=== PATIENT | female | born 1975 | race Two or more races ===

== ENCOUNTER 2022-03-08 09:19 | Emergency (ER) | payer SELFPAY ==
[~2022-03-08] VITALS: Ht 157.5 cm; Wt 83.9 kg
--- NOTE | 2022-03-08 09:30 | NUR ---
DR DYSON AT BEDSIDE FOR EVAL
--- NOTE | 2022-03-08 09:36 | NUR ---
TECH AT BEDSIDE FOR EKG
--- NOTE | 2022-03-08 09:45 | NUR ---
IV LINE ESTABLISHED ON RAC #20, BLOOD DRAWN AND COLLECTED BY PHLEB AT BEDSIDE
--- NOTE | 2022-03-08 09:47 | NUR ---
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
[2022-03-08 09:58] LABS: BASOPHILS % (AUTO) 0.4 % (0.0-2.0); EOSINOPHILS % (AUTO) 0.9 % (0.0-6.0); HEMATOCRIT 43 % (33-45); LYMPHOCYTES # (AUTO) 2.2 K/uL (0.8-4.8); LYMPHOCYTES % (AUTO) 22.1 % (20.0-44.0); MEAN CORPUSCULAR HGB CONC 33 g/dl (31.0-36.0); MEAN CORPUSCULAR VOLUME 89 fL (82-100); MONOCYTES # (AUTO) 0.6 K/uL (0.1-1.30); MONOCYTES % (AUTO) 6.4 % (2.0-12.0); NEUTROPHILS # (AUTO) 7.1 K/uL (1.8-8.9); NEUTROPHILS % (AUTO) 70.2 % (43.0-81.0); PLATELET COUNT (AUTO) 256 K/uL (150-450); RED BLOOD CELL COUNT(AUTO) 4.84 MIL/uL (4.0-5.2); WHITE BLOOD COUNT (AUTO) 10.1 K/uL (4.3-11.0)
[2022-03-08 10:12] LABS: CALCIUM, SERUM 8.7 mg/dL (8.5-10.1); CARBON DIOXIDE 25 mmol/L (21-32); CHLORIDE 101 mmol/L (98-107); CREATININE 0.7 mg/dL (0.6-1.3); GLUCOSE 153 mg/dL (74-106); POTASSIUM 2.9 mmol/L (3.5-5.1); SODIUM SERUM 137 mmol/L (136-145); UREA NITROGEN, BLOOD 14 mg/dL (7-18)
[2022-03-08] MEDS: POTASSIUM CL. PREMIX PERIPHER. 50 ML IV SCH ×3 (10:25→11:16)
[2022-03-08] MEDS ORDERED: POTASSIUM CHLORIDE 20 MEQ TAB.PRT.SR PO ONE ×2 (10:30→10:32)
[2022-03-08] MEDS ORDERED: POTASSIUM CL. PREMIX PERIPHER. 100 ML ONE (10:32)
--- NOTE | 2022-03-08 10:45 | NUR ---
POTASSIUM PO AND POTASSIUM IV GIVEN INDICATED, [facility].
[2022-03-08 10:56] LABS: THYROID STIMULATING HORMONE 1.807 uIU/mL (0.358-3.74)
--- NOTE | 2022-03-08 12:33 | NUR ---
PHLEB AT BEDSIDE FOR BLOOD DRAW
[2022-03-08 13:31] LABS: CALCIUM, SERUM 9.2 mg/dL (8.5-10.1); CREATININE 0.6 mg/dL (0.6-1.3); POTASSIUM 3.7 mmol/L (3.5-5.1)
[2022-03-08] MEDS ORDERED: AMLO-212 PO (13:43)
--- NOTE | 2022-03-08 13:53 | NUR ---
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
--- NOTE | 2022-03-08 14:13 | NUR ---
IV removed. Catheter intact and site benign. Pressure and 4x4 applied to site. No bleeding noted.
[2022-03-08 14:20] VITALS: BP 132/70
--- NOTE | 2022-03-08 14:20 | NUR ---
Patient discharged to home in stable condition. Written and verbal after care instructions given. Patient verbalizes understanding of instruction.
== END 2022-03-08 14:20 | disposition home or self-care (01) ==
LOC: ER 09:30
DX: I10 Essential (primary) hypertension (principal); E87.6 Hypokalemia; R00.2 Palpitations; Z79.899 Other long term (current) drug therapy
CPT/HCPCS: 99285; 96365; 71045; 96366; 93005; 85025; 80048 ×2; 36415; 84439; 84443; 84484; 83880; J3480